=== PATIENT | male | born 1930 | race Hispanic/Latino ===

== ENCOUNTER 2016-08-20 08:56 | Emergency (ER) | payer MEDICARE ==
[2016-08-20 08:56] VITALS: BMI 28.0
[2016-08-20 09:06] VITALS: BP 124/73; PULSE 98; RESP 20; TEMP 98.1; O2SAT 99
--- NOTE | 2016-08-20 09:50 | ED PDOC ---
Arrival/HPI - General Chief Complaint: Lower Extremity Problem/Injury Time Seen by Provider: 08/20/16 09:17 Historian: Patient - History of Present Illness Narrative History of Present Illness (Text): 08/20/16 09:28 Minh Nevarez is an 86 year old male whose past medical history includes Diabetes, Hypertension, and Throat CA, who presents to the Emergency department for bilateral hip & leg pain. Patient has had symptoms chronically. Symptoms are accompanied with mild back pain. No saddle anesthesia. No incontince. No trauma. Patient otherwise denies any fever, chills, chest pain, shortness of breath, nausea, vomiting, diarrhea, urinary symptoms, neck pain, numbness, headache, dizziness, or any other complaints. PMD: None Time/Duration: > month Symptom Onset: Gradual Symptom Course: Unchanged Activities at Onset: Light Context: Home Past Medical History - Provider Review Nursing Documentation Reviewed: Yes - Infectious Disease Hx of Infectious Diseases: None - Cardiac Other/Comment: THROAT AND BLADDER CA - Pulmonary Other/Comment: Trach - Hematological/Oncological Hx Cancer: (Throat CA) - Psychiatric Hx Substance Use: No - Surgical History Other/Comment: tracheostomy - Anesthesia Hx Anesthesia: Yes Hx Anesthesia Reactions: No Hx Malignant Hyperthermia: No - Suicidal Assessment Feels Threatened In Home Enviroment: No Family/Social History - Physician Review Nursing Documentation Reviewed: Yes Family/Social History: No Known Family HX Smoking Status: Former Smoker Hx Alcohol Use: No Hx Substance Use: No Hx Substance Use Treatment: No Allergies/Home Meds Allergies/Adverse Reactions: Allergies No Known Allergies Allergy (Verified 08/20/16 09:06) Home Medications: Home Meds Medication Instructions Recorded Confirmed Aspirin [Aspirin Chewable] 81 mg PO DAILY 08/20/16 08/20/16 Carvedilol [Coreg] 6.25 mg PO BID 08/20/16 08/20/16 Furosemide [Lasix] 20 mg PO MWF 08/20/16 08/20/16 GlipiZIDE [Glucotrol] 5 mg PO BID 08/20/16 08/20/16 Indomethacin [Indocin] 50 mg PO PRN PRN 08/20/16 08/20/16 Levothyroxine [Synthroid] 0.088 mg PO DAILY 08/20/16 08/20/16 Losartan [Cozaar] 25 mg PO DAILY 08/20/16 08/20/16 Simvastatin 80 mg PO DAILY 08/20/16 08/20/16 Spironolactone [Aldactone] 25 mg PO DAILY 08/20/16 08/20/16 Tamsulosin [Flomax] 1 tab PO HS 08/20/16 08/20/16 Review of Systems - Physician Review All systems were reviewed & negative as marked: Yes - Review of Systems Constitutional: Normal. absent: Fevers Eyes: Normal ENT: Normal Respiratory: Normal. absent: SOB, Cough Cardiovascular: Normal. absent: Chest Pain Gastrointestinal: Normal. absent: Abdominal Pain, Diarrhea, Nausea, Vomiting Genitourinary Male: Normal. absent: Dysuria, Frequency, Hematuria, Urinary Output Changes Musculoskeletal: Back Pain, Other (Bilateral Hip and Leg Pain). absent: Neck Pain Skin: Normal Neurological: Normal. absent: Headache, Dizziness, Focal Weakness, Gait Changes Endocrine: Normal Hemo/Lymphatic: Normal Psychiatric: Normal Physical Exam Vital Signs Reviewed: Yes Vital Signs Temp Pulse Resp BP Pulse Ox 08/20/16 09:06 98 H 20 124/73 99 08/20/16 08:59 98.1 F 98 H 20 124/73 99 Temperature: Afebrile Blood Pressure: Normal Pulse: Tachycardic Respiratory Rate: Normal Appearance: Positive for: Well-Appearing, Non-Toxic, Comfortable Pain Distress: None Mental Status: Positive for: Alert and Oriented X 3 - Systems Exam Head: Present: Atraumatic, Normocephalic Pupils: Present: PERRL Extroacular Muscles: Present: EOMI Conjunctiva: Present: Normal Mouth: Present: Moist Mucous Membranes Neck: Present: Normal Range of Motion Respiratory/Chest: Present: Clear to Auscultation, Good Air Exchange. No: Respiratory Distress, Accessory Muscle Use Cardiovascular: Present: Regular Rate and Rhythm, Normal S1, S2. No: Murmurs Abdomen: Present: Normal Bowel Sounds. No: Tenderness, Distention, Peritoneal Signs Back: Present: Paraspinal Tenderness (Lower Lumbar Paraspinal Tenderness). No: Pain with Leg Raise Lower Extremity: Present: Normal ROM, Neurovascularly Intact Neurological: Present: GCS=15, CN II-XII Intact, Speech Normal Skin: Present: Warm, Dry, Normal Color. No: Rashes Psychiatric: Present: Alert, Oriented x 3, Normal Insight, Normal Concentration Medical Decision Making ED Course and Treatment: 08/20/16 09:28 Impression: 86 year old male complaining of bilateral hip and leg pain and mild lower back pain. Differential Diagnosis include but are not limited to: Sciatica vs. Back Sprain vs. Neuropathy Plan: -- LS Spine X-Ray -- Pelvis X-Ray -- Gabapentin -- Toradol -- Reassess and disposition Prior Visits: Notes and results from previous visits were reviewed. Patient was last seen in the Emergency department on 03/23/15 for abdominal pain. Progress Notes: 08/20/16 10:24 Patient feels better. His pain is improved. He does not feel dizzy or lightheaded from the medication. He has friends with him that he and they say will take him home and make sure he gets his medication. I advised him to not drive while on these medications and to follow up with his primary care doctor at the [facility] this week. Advised to return to the ED if he develops numbness, weakness, inability to walk or any other concern. - RAD Interpretation Radiology Orders: 08/20/16 09:33 LS SPINE WITH OBL > 18 YRS OLD [RAD] Stat PELVIS ONE VIEW [RAD] Stat XRays negative for fracture or mass Contract Associate: ED Physician - Medication Orders Current Medication Orders: Gabapentin (Neurontin) 300 mg PO STAT RAMIRO PRN Reason: Protocol Last Admin: 08/20/16 10:02 Dose: 300 MG Discontinued Medications Ketorolac Tromethamine (Toradol) 30 mg IM STAT STA Stop: 08/20/16 09:35 Last Admin: 08/20/16 10:02 Dose: 30 MG IM Administration Charges Document 08/20/16 10:02 HI (Rec: 08/20/16 10:02 CA [id number]) Injection Site MAR Injection Site Right Gluteus Ankur Charges for Administration # of IM Administrations 1 - Scribe Statement The provider has reviewed the documentation as recorded by the Richard Parker Provider Attestation: All medical record entries made by the Richard were at my direction and personally dictated by me. I have reviewed the chart and agree that the record accurately reflects my personal performance of the history, physical exam, medical decision making, and the department course for this patient. I have also personally directed, reviewed, and agree with the discharge instructions and disposition. Disposition/Present on Arrival - Present on Arrival Any Indicators Present on Arrival: No History of DVT/PE: No History of Uncontrolled Diabetes: No Urinary Catheter: No History of Decub. Ulcer: No History Surgical Site Infection Following: None - Disposition Have Diagnosis and Disposition been Completed?: Yes Diagnosis: Sciatica Disposition: HOME/ ROUTINE Disposition Time: 10:14 Patient Plan: Discharge Patient Problems: Current Active Problems Problem Status Diagnosed Sciatica Acute Condition: IMPROVED Discharge Instructions (ExitCare): Sciatica (ED), Lumbar Radiculopathy (ED) Additional Instructions: Mr Nevarez, thank you for letting us take care of you today. Your provider was Dr. Seay. You were treated for Sciatica. The emergency medical care you received today was directed at your acute symptoms. If you were prescribed any medication, please fill it and take as directed. It may take several days for your symptoms to resolve. Return to the Emergency Department if your symptoms worsen, do not improve, or if you have any other problems. Please contact your doctor or call one of the physicians/clinics you have been referred to that are listed on the Patient Visit Information form that is included in your discharge packet. Bring any paperwork you were given at discharge with you along with any medications you are taking to your follow up visit. Our treatment cannot replace ongoing medical care by a primary care provider (PCP) outside of the emergency department. Thank you for allowing the [facility] [employer] team to be part of your care today. If you had an X-Ray or CT scan: A Radiologist will review the ED reading if any change in treatment is needed we will contact you. If you had a blood, urine, or wound culture: It will take several days for the results, if any change in treatment is needed we will contact you. If you had an STI test: It will take 48 hours for the results. Please call after 1 week if you have not heard back. Prescriptions: Gabapentin 300 mg PO TID PRN #10 capsule PRN Reason: Pain, Moderate (4-7) [facility] - Follow up with primary
--- NOTE | 2016-08-20 13:21 | RAD ---
PROCEDURE: Radiographs of the pelvis. HISTORY: hip pain COMPARISON: None. FINDINGS: BONES: Pelvic Bones: No acute fracture. Widely disseminated sclerotic metastatic disease. This affects visualize lower lumbar vertebral bodies, pelvis and proximal femurs. Hips: Moderate -severe in symmetrical degenerative changes. JOINTS: Sacroiliac Joints: Unremarkable. Pubic Symphysis: Unremarkable. OTHER FINDINGS: None. IMPRESSION: Widely disseminated sclerotic metastatic disease. No evidence fracture.
--- NOTE | 2016-08-20 13:23 | RAD ---
PROCEDURE: Radiographs of the Lumbar Spine. HISTORY: back and hip pain COMPARISON: No prior. FINDINGS: BONES: Sclerotic metastatic disease primarily affecting visualized pelvic osseous structures. To a lesser extent lumbar vertebral body is displaced sclerotic disease. DISC SPACES: Multilevel degenerative changes. OTHER FINDINGS: None. IMPRESSION: No acute findings related to/accounting for the clinical presentation. Degenerative changes mid lower lumbar spine. Sclerotic osseous metastatic disease.
== END 2016-08-20 10:26 | disposition home or self-care (01) ==
LOC: ED 08:56
DX: M54.30 Sciatica, unspecified side (principal)
CPT/HCPCS: 72110; 72170; 96372; 99284; J1885

== ENCOUNTER 2016-09-21 17:32 | Inpatient (IN) | payer MEDICARE ==
[2016-09-21 17:36] VITALS: BMI 27.4
--- NOTE | 2016-09-21 18:06 | ED PDOC ---
Arrival/HPI - General Chief Complaint: Lower Extremity Problem/Injury Time Seen by Provider: 09/21/16 17:42 Historian: Patient - History of Present Illness Narrative History of Present Illness (Text): 09/21/16 18:04 Patient is an 86 year old male whose past medical history includes diabetes, hypertension, stent, and throat cancer, presents to the emergency department with bilateral leg swelling for the past week. Patient also reports decreased urinary output for the past month. Denies chest pain, shortness of breath, or other symptoms. Time/Duration: < week Symptom Onset: Gradual Symptom Course: Unchanged Modifying Factors (Text): None Associated Symptoms (Text): None Past Medical History - Provider Review Nursing Documentation Reviewed: Yes - Infectious Disease Hx of Infectious Diseases: None - Cardiac Hx Cardiac Disorders: Yes Hx Hypertension: Yes Other/Comment: THROAT AND BLADDER CA - Pulmonary Hx Respiratory Disorders: Yes Other/Comment: Trach - Neurological Hx Neurological Disorder: No - HEENT Hx HEENT Disorder: No - Renal Hx Renal Disorder: No - Endocrine/Metabolic Hx Endocrine Disorders: Yes Hx Diabetes Mellitus Type 2: Yes - Hematological/Oncological Hx Blood Disorders: Yes Hx Cancer: Yes (Throat CA) - Integumentary Hx Dermatological Disorder: No - Musculoskeletal/Rheumatological Hx Musculoskeletal Disorders: No - Gastrointestinal Hx Gastrointestinal Disorders: No - Genitourinary/Gynecological Hx Genitourinary Disorders: No - Psychiatric Hx Psychophysiologic Disorder: No Hx Substance Use: No - Surgical History Hx Cardiac Catheterization: Yes Hx Coronary Stent: Yes Other/Comment: tracheostomy - Anesthesia Hx Anesthesia: Yes Hx Anesthesia Reactions: No Hx Malignant Hyperthermia: No - Suicidal Assessment Feels Threatened In Home Enviroment: No Family/Social History - Physician Review Nursing Documentation Reviewed: Yes Family/Social History: Unknown Family HX Smoking Status: Former Smoker Hx Alcohol Use: No Hx Substance Use: No Hx Substance Use Treatment: No Allergies/Home Meds Allergies/Adverse Reactions: Allergies No Known Allergies Allergy (Verified 09/25/16 23:50) Home Medications: Home Meds Medication Instructions Recorded Confirmed Aspirin [Aspirin Chewable] 81 mg PO DAILY 08/20/16 09/25/16 Carvedilol [Coreg] 6.25 mg PO BID 08/20/16 09/25/16 Furosemide [Lasix] 20 mg PO MWF 08/20/16 09/25/16 GlipiZIDE [Glucotrol] 5 mg PO BID 08/20/16 09/25/16 Indomethacin [Indocin] 50 mg PO PRN PRN 08/20/16 09/25/16 Levothyroxine [Synthroid] 0.088 mg PO DAILY 08/20/16 09/25/16 Simvastatin 80 mg PO DAILY 08/20/16 09/25/16 Tamsulosin [Flomax] 1 tab PO HS 08/20/16 09/25/16 Cholecalciferol [Vitamin D 1000 IU] 2,000 units PO DAILY 09/21/16 09/25/16 Ipratropium [place] 2 spr IN DAILY 09/21/16 09/25/16 Review of Systems - Review of Systems Eyes: absent: Vision Changes ENT: absent: Hearing Changes Respiratory: absent: SOB Cardiovascular: Edema. absent: Chest Pain Gastrointestinal: absent: Abdominal Pain, Nausea, Vomiting Genitourinary Male: Urinary Output Changes (decreased x 1 month). absent: Dysuria, Hematuria Musculoskeletal: absent: Back Pain Skin: absent: Rash Neurological: absent: Headache Endocrine: absent: Diaphoresis Psychiatric: absent: Depression Physical Exam - Physical Exam Narrative Physical Exam (Text): Head: Atraumatic. Normocephalic. Eyes: PERRL. EOMI. Conjunctivae are not pale. ENT: Mucous membranes are moist and intact. Oropharynx is clear and symmetric. Neck: Supple. Full ROM. No JVD. No lymphadenopathy. Cardiovascular: Regular rate. Regular rhythm. Systolic murmur. No rubs, or gallops. Distal pulses are 2+ and symmetric. Pulmonary/Chest: No evidence of respiratory distress. Diminished breath sounds left lung, no accessory muscle usage. Abdominal: Soft and non-distended. There is no tenderness. No rebound, guarding, or rigidity. No organomegaly. Good bowel sounds. Back: No CVA tenderness. Genitoruinary: no penile discharge, no testicular edema Extremities: Bilateral lower extremity pitting edema. No cyanosis. No clubbing. Full range of motion in all extremities. No calf tenderness. Skin: Skin is warm and dry. No petechiae. No purpura. Neurological: Alert, awake, and oriented to person, place, time, and situation. Normal speech. Psychiatric: Good eye contact. Normal interaction, affect, and behavior. Vital Signs Reviewed: Yes Vital Signs Temp Pulse Resp BP Pulse Ox 09/21/16 20:54 116/69 05/17/17 20:52 68 16 129/65 93 L 09/21/16 19:37 129/76 09/21/16 19:00 59 L 17 106/61 97 09/21/16 17:36 99 F 70 16 110/67 94 L Temperature: Afebrile Blood Pressure: Normal Pulse: Regular Respiratory Rate: Normal Appearance: Positive for: Well-Appearing, Non-Toxic, Comfortable Pain Distress: None Mental Status: Positive for: Alert and Oriented X 3 Medical Decision Making ED Course and Treatment: Differential Diagnosis included but are not limited to: Renal disease vs CHF vs medication noncompliance Plan: Will obtain chest x-ray, BNP, labs, and cardiac workup. Prior Visits: Notes and results from previous visits were reviewed. Patient last seen in the ED on 08/20/16 for bilateral hip/leg pain and discharged home. Progress Notes: Patient with multiple questioning denies any chest pain or shortness of breath. Chest xray reveals large pleural effusion: Chest X-Ray Movable Bulkhead Installer : DR. Becerra, Geovanna Bernstein MD Report Date : 09/21/2016 18:42:01 IMPRESSION: Large left pleural effusion and/or consolidation. Left-sided AICD. With family present, patient again interviewed and later admits that he may have some shortness of breath over past few days with exertion. He also reports sensation in change of urine output, although he is noted to have no signs of retention and no abdominal pain on exam. On oxygen he is comfortable, no acute distress. Case discussed with admitting PMD, dose of Lasix ordered, patient maintained on supplemental oxygen and continues to deny any shortness of breath at rest. Differential diagnosis discussed with patient and family, including but not limited to CHF, pleural effusion, malignancy, cardiac disease, renal disease. 10/10/16 22:05 - Lab Interpretations Lab Results: 09/21/16 18:20 09/21/16 18:20 Lab Results 09/21/16 19:45: pCO2 30 L, pO2 74.0 L, HCO3 16.9 L, ABG pH 7.36, ABG Total CO2 17.8 L, ABG O2 Saturation 97.0, ABG Base Excess -7.3 L, ABG Potassium 4.8, Glucose 142 H, Lactate 0.6 L, FiO2 32.0, Sodium 137.0, Chloride 117.0 H, Arterial Blood Potassium 4.8 09/21/16 18:20: POC Glucose (mg/dL) 133 H 09/21/16 18:20: Sodium 138, Potassium 4.9, Chloride 109 H, Carbon Dioxide 21, Anion Gap 13, BUN 32 H, Creatinine 1.6 H, Est GFR ( Amer) 50, Est GFR ( Non-Af Amer) 41, Random Glucose 113 H, Calcium 8.6, Total Bilirubin 1.0, AST 59 , ALT 30, Alkaline Phosphatase 1300 H, Lactate Dehydrogenase 3142 H, Total Creatine Kinase 172, Troponin I 0.01, NT-Pro-B Natriuret Pep 9060 H, Total Protein 6.6, Albumin 3.6, Globulin 3.0, Albumin/Globulin Ratio 1.2, Triglycerides 102, Cholesterol 88 L, LDL Cholesterol Direct 42, HDL Cholesterol 33 09/21/16 18:20: PT 12.2 H, INR 1.13 H, APTT 29.5 09/21/16 18:20: WBC 4.9, RBC 3.73, Hgb 10.6 L, Hct 31.5 L, MCV 84.5, MCH 28.4, MCHC 33.7, RDW 16.9 H, Plt Count 147, MPV 9.8, Gran % 76.9 H, Lymph % (Auto) 13.0 L, [place] % (Auto) 7.4 H, Eos % (Auto) 2.3, Baso % (Auto) 0.4, Gran # 3.73, Lymph # 0.6 L, [place] # 0.4, Eos # 0.1, Baso # 0.02 - RAD Interpretation Radiology Orders: 09/21/16 18:05 CHEST PORTABLE [RAD] Stat 09/21/16 19:17 CHEST W/O CONTRAST [CT] Stat Contractor General Building: Radiologist - Medication Orders Current Medication Orders: Discontinued Medications Acetaminophen (Tylenol 325mg Tab) 650 mg PO Q6H PRN PRN Reason: Fever >100.4 F Albuterol/Ipratropium (Duoneb 3 Mg/0.5 Mg (3 Ml) Ud) 3 ml IH Q2H PRN PRN Reason: Shortness of Breath Last Admin: 09/21/16 23:38 Dose: 3 ml Albuterol/Ipratropium (Duoneb 3 Mg/0.5 Mg (3 Ml) Ud) 3 ml IH [id number] [facility] Last Admin: 09/25/16 13:44 Dose: 3 ml Apixaban (Eliquis) 2.5 mg PO BID [facility] PRN Reason: Protocol Last Admin: 09/25/16 09:49 Dose: 2.5 mg Aspirin (Aspirin Chewable) 81 mg PO DAILY [facility] Last Admin: 09/25/16 09:49 Dose: 81 mg Atorvastatin Calcium (Lipitor) 40 mg PO DAILY [facility] Last Admin: 09/25/16 09:49 Dose: 40 mg Carvedilol (Coreg) 6.25 mg PO BID [facility] Last Admin: 09/24/16 11:14 Dose: Not Given Non-Admin Reason: BP Parameters Not Met Carvedilol (Coreg) 6.25 mg PO DAILY [facility] Last Admin: 09/25/16 09:50 Dose: Not Given Non-Admin Reason: BP Parameters Not Met Enoxaparin Sodium (Lovenox) 40 mg SC DAILY [facility] PRN Reason: Protocol Last Admin: 09/24/16 11:22 Dose: 40 mg Furosemide (Lasix) 20 mg IVP STAT STA Stop: 09/21/16 19:32 Last Admin: 09/21/16 19:37 Dose: 20 mg Furosemide (Lasix) 20 mg IVP STAT STA Stop: 09/21/16 20:39 Last Admin: 09/21/16 20:54 Dose: 20 mg Furosemide (Lasix) 40 mg IVP DAILY [facility] Last Admin: 09/25/16 09:51 Dose: Not Given Non-Admin Reason: BP Parameters Not Met Gabapentin (Neurontin) 300 mg PO TID [facility] Last Admin: 09/25/16 13:25 Dose: 300 mg Glipizide (Glucotrol) 5 mg PO BID [facility] Last Admin: 09/25/16 09:50 Dose: 5 mg Ceftriaxone Sodium (Rocephin 1 Gram Ivpb) 1 gm in 100 mls @ 100 mls/hr IVPB DAILY [facility] PRN Reason: Protocol Last Admin: 09/25/16 09:51 Dose: 100 mls/hr Indomethacin (Indocin) 50 mg PO DAILY PRN PRN Reason: Pain, moderate (4-7) Last Admin: 09/24/16 15:33 Dose: 50 mg Re-Assess: ASHLEY Pain Assessment Document 09/24/16 16:33 MIKE (Rec: 09/24/16 17:43 MIKE [id number]) Pain Reassessment Is this a pain reassessment? Yes Sleep Is patient sleeping during reassessment? No Presence of Pain Presence of Pain No Insulin Human Regular (Humulin R Med) 0 units SC ACHS [facility] PRN Reason: Protocol Last Admin: 09/25/16 12:09 Dose: Not Given Non-Admin Reason: Blood Sugar Parameter Levothyroxine Sodium (Synthroid) 88 mcg PO DAILY [facility] Last Admin: 09/25/16 09:49 Dose: 88 mcg Losartan Potassium (Cozaar) 25 mg PO DAILY [facility] Last Admin: 09/24/16 11:15 Dose: Not Given Non-Admin Reason: BP Parameters Not Met Magnesium Oxide (Mag-Ox) 400 mg PO BID [facility] Last Admin: 09/25/16 09:49 Dose: 400 mg Ondansetron HCl (Zofran Inj) 4 mg IVP Q6H PRN PRN Reason: Nausea/Vomiting Pantoprazole Sodium (Protonix Ec Tab) 40 mg PO 0630 [facility] Last Admin: 09/25/16 06:19 Dose: 40 mg Spironolactone (Aldactone) 25 mg PO DAILY [facility] Last Admin: 09/25/16 09:49 Dose: 25 mg Tamsulosin HCl (Flomax) 0.4 mg PO HS [facility] Last Admin: 09/24/16 21:13 Dose: 0.4 mg - Niraliibheladio Statement The provider has reviewed the documentation as recorded by the Richard Gilbert Provider Scribe Attestation: All medical record entries made by the Richard were at my direction and personally dictated by me. I have reviewed the chart and agree that the record accurately reflects my personal performance of the history, physical exam, medical decision making, and the department course for this patient. I have also personally directed, reviewed, and agree with the discharge instructions and disposition. Disposition/Present on Arrival - Present on Arrival Any Indicators Present on Arrival: No History of DVT/PE: No History of Uncontrolled Diabetes: No Urinary Catheter: No History of Decub. Ulcer: No History Surgical Site Infection Following: None - Disposition Have Diagnosis and Disposition been Completed?: Yes Diagnosis: CHF (congestive heart failure), Pleural effusion, Leg edema Disposition: HOSPITALIZED Disposition Time: 19:35 Patient Plan: Admission Condition: SERIOUS
[2016-09-21 18:25] LABS: ADD MANUAL DIFF? NO
[2016-09-21 18:32] LABS: BASO # 0.02 K/mm3 (0.0-2.0); BASO % 0.4 % (0.0-3.0); EOS # 0.1 (0.0-0.7); EOS % 2.3 % (1.5-5.0); GRAN # 3.73 (1.4-6.5); GRAN % 76.9 % (50.0-68.0); HEMATOCRIT 31.5 % (42.0-52.0); LYMPH # 0.6 (1.2-3.4); MEAN CELL VOLUME 84.5 fL (80.0-105.0); MEAN CORPUSCULAR HEMOGLOBIN 28.4 pg (25.0-35.0); MEAN CORPUSCULAR HGB CONC 33.7 g/dl (31.0-37.0); MEAN PLATELET VOLUME 9.8 fl (7.0-11.0); MONO # 0.4 (0.1-0.6); MONO % 7.4 % (1.0-6.0); PLATELET COUNT 147 10^3/uL (120.0-450.0); RED CELL DISTRIBUTION WIDTH 16.9 % (11.5-14.5); WHITE BLOOD COUNT 4.9 10^3/ul (4.5-11.0)
[2016-09-21 18:36] LABS: ALB/GLOB RATIO 1.2 (1.1-1.8); CALCIUM 8.6 mg/dL (8.4-10.5); POTASSIUM 4.9 mmol/L (3.6-5.0); TOTAL PROTEIN 6.6 g/dL (5.8-8.3)
[2016-09-21 18:40] LABS: INR 1.13 (0.93-1.08); PARTIAL THROMBOPLASTIN TIME 29.5 Seconds (23.7-30.8)
--- NOTE | 2016-09-21 18:44 | RAD ---
HISTORY: leg edema COMPARISON: CT of the chest performed 03/23/15 TECHNIQUE: Chest, one view. FINDINGS: LUNGS: Large left pleural effusion and/or consolidation. No definite pneumothorax. Please note that chest x-ray has limited sensitivity for the detection of pulmonary masses. CARDIOVASCULAR: Median sternotomy wires. Partially obscured borderline cardiomegaly. Atherosclerotic calcifications of the aorta. Single lead left-sided AICD. OSSEOUS STRUCTURES: Osseous demineralization. Degenerative changes. VISUALIZED UPPER ABDOMEN: Unremarkable. OTHER FINDINGS: None. IMPRESSION: Large left pleural effusion and/or consolidation. Left-sided AICD.
[2016-09-21 18:48] LABS: TROPONIN I 0.01 ng/mL
[2016-09-21 19:55] LABS: ARTERIAL BLOOD GAS HCO3 16.9 mmol/L (21-28); ARTERIAL BLOOD GAS PH 7.36 (7.35-7.45)
[2016-09-21 21:53] LABS: URINE BILIRUBIN NEGATIVE (NEGATIVE); URINE BLOOD SMALL (NEGATIVE); URINE GLUCOSE (UA) NEGATIVE (NEGATIVE); URINE KETONE NEGATIVE (NEGATIVE); URINE LEUKOCYTE ESTERASE NEGATIVE Leu/uL (NEGATIVE); URINE PROTEIN NEGATIVE mg/dL (<30 mg/dL); URINE UROBILINOGEN 0.2 E.U./dL (<1 E.U./dL)
[2016-09-21] MEDS ORDERED: Albuterol-Ipratrop 3 mg / 0.5 (3 ml) UD IH PRN (21:54)
[2016-09-21 22:00] LABS: URINE APPEARANCE CLEAR (CLEAR); URINE COLOR YELLOW (YELLOW)
--- NOTE | 2016-09-21 22:16 | CARD ---
APPROVED REPORT EKG Measurement Heart [id number] <Conclusion> Wide QRS rhythm Left axis deviation Left bundle branch block Abnormal ECG
[2016-09-21 22:31] LABS: URINE BACTERIA MANY (NEG); URINE WBC 0 - 2 /hpf (0-6)
--- NOTE | 2016-09-21 23:26 | HP ---
HISTORY OF PRESENT ILLNESS: The patient is an 86-year-old who was brought in because of increasing b ilateral leg swelling and has been going on for the last 2 weeks. He was given extra Lasix by the ad vice of his PMD, but did not make any difference. Denies any chest pain, no shortness of breath. No history of fever, no chills, no history of hemoptysis, no hematemesis, no dizziness. PAST MEDICAL HISTORY: 1. Non-insulin dependent diabetes. 2. Hypertension. 3. History of angioplasty. 4. 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 5. History of generalized osteoarthritis. 6. The patient also mentions that recently his urine output has been decreased. ALLERGIES: He is not allergic to any medications. MEDICATIONS AT HOME: He is on Coumadin 6.25 twice a day, indomethacin 50 mg t.i.d. p.r.n. He is on ipratropium, vitamin D, Lasix 20 mg Monday, Monday and Monday; glipizide 5 mg twice a day, levothy roxine 0.88 daily, losartan 25 daily, simvastatin 80 mg daily, aspirin 81 daily, Aldactone 25 daily, Flomax 0.4 mg daily. SOCIAL HISTORY: He used to be a heavy smoker in the past, but quit many years ago. No history of dr ug or alcohol use. PHYSICAL EXAMINATION: GENERAL: He is awake and alert, able to communicate. VITAL SIGNS: He is afebrile, pulse 68, respirations 16, blood pressure 129/65. LUNGS: Bilateral fair airflow, no rhonchi or crackle. He has bilateral increased breath sounds, mor e so on the bases. HEART: S1, S2 audible. ABDOMEN: Soft, nontender, no rebound, no guarding. NEUROLOGIC: He is awake and alert, communicative. EXTREMITIES: Bilateral leg +2 edema. LABORATORY DATA: WBC is 4.9, hemoglobin 10.6, hematocrit 31.5, platelets 147. PT 12.2, INR 1.13, PT T 29.5. ABG: pH is 7.36, bicarb 16.9, pO2 74, pCO2 30. Chemistry: Sodium 138, potassium 4.0, chlo ride 109, CO2 21, BUN 32, creatinine 1.6, blood sugar 130. LFTs are within normal limits. Alkaline phosphatase is 1383, 1142. BNP is 9060. CPK 172. X-ray chest shows large left pleural effusion and consolidation and status post defibrillator placement. ASSESSMENT: 1. Bilateral leg swelling. 2. Left pleural effusion. 3. Status post defibrillator placement. 4. Noninsulin dependent diabetes. 5. Hypertension. 6. Coronary artery disease. 7. History of chronic obstructive pulmonary disease. 8. History of cancer of throat. 9. Hypothyroidism. PLAN: The patient will be admitted on telemetry. We will start him on IV diuretics, will empiricall y cover him with IV antibiotic. Will order for bilateral leg Doppler, will order for an echocardiogr amDr. Lemus for consult. We will follow up electrolytes in a.m. Dr. Navjot Phan for possible thora centesis, both therapeutic and diagnostic. Resume the patient's usual medication and reevaluate in a .m. Araceli Ghotra MD cc: [phone] TT: 09/21/2016 23:26:01 va
[2016-09-21] MEDS: Insulin Reg-MEDIUM-Coverage SC SCH (23:34)
--- NOTE | 2016-09-21 23:43 | CP.PCM.CON ---
History of Present Illness - History of Present Illness History of Present Illness: Reason for ICU Consult: Left sided pleural effusion HPI: 86 y/o male with a PMHx Vocal cord lesion s/p trach, CABG, BPH, Hypothyroid , DM, Gout and ?CHf presented to the ED with the complaint of worsening shortness of breath. Patient reported his shortness of breath would get worse when exerting himself and caused him to pause and catch his breath more often than usual. Also over the past 1 week he has been complaining of lower extremity swelling which has been worsening. He denies any complaints of chest pain, palpitations, abdominal pain, nausea, vomiting, fever, chills, diarrhea or headaches. He denies any recent travel or any sick contacts. Patient reports feeling better with less shortness of breath at rest after coming to the ED and receiving Oxygen via nasal cannula. PMHx: As above Allergies: NKDA Fam Hx: reviewed and noncontributory Soc Hx: prior smoker, states he has not smoked in over 20yrs; denies etoh; denies illicit drug use Home meds: See Med Rec Review of Systems - Review of Systems Review of Systems: As per HPI otherwise negative for a 12 point ROS Past Patient History - Infectious Disease Hx of Infectious Diseases: None - Past Social History Smoking Status: Former Smoker Alcohol: None Drugs: Denies Home Situation {Lives}: With Family - CARDIAC Hx Cardiac Disorders: Yes Hx Hypertension: Yes Other/Comment: THROAT AND BLADDER CA - PULMONARY Hx Respiratory Disorders: Yes Other/Comment: Trach - NEUROLOGICAL Hx Neurological Disorder: No - HEENT Hx HEENT Problems: No - RENAL Hx Chronic Kidney Disease: No - ENDOCRINE/METABOLIC Hx Endocrine Disorders: Yes Hx Diabetes Mellitus Type 2: Yes - HEMATOLOGICAL/ONCOLOGICAL Hx Blood Disorders: Yes Hx Cancer: Yes (Throat CA) - INTEGUMENTARY Hx Dermatological Problems: No - MUSCULOSKELETAL/RHEUMATOLOGICAL Hx Musculoskeletal Disorders: No - GASTROINTESTINAL Hx Gastrointestinal Disorders: No - GENITOURINARY/GYNECOLOGICAL Hx Genitourinary Disorders: No - PSYCHIATRIC Hx Psychophysiologic Disorder: No Hx Substance Use: No - SURGICAL HISTORY Hx Cardiac Catheterization: Yes Hx Coronary Stent: Yes Other/Comment: tracheostomy - ANESTHESIA Hx Anesthesia: Yes Hx Anesthesia Reactions: No Hx Malignant Hyperthermia: No Meds Allergies/Adverse Reactions: Allergies Allergy/AdvReac Type Severity Reaction Status Date / Time No Known Allergies Allergy Verified 09/21/16 17:35 Physical Exam - Constitutional Appears: Well, No Acute Distress - Head Exam Head Exam: ATRAUMATIC, NORMOCEPHALIC - Eye Exam Eye Exam: EOMI - ENT Exam ENT Exam: Mucous Membranes Moist Additional comments: Trach site with cover - Neck Exam Neck exam: Positive for: Full Rom. Negative for: Tenderness - Respiratory Exam Respiratory Exam: NORMAL BREATHING PATTERN Additional comments: decreased breath sounds over the left lung; clear to auscultation otherwise - Cardiovascular Exam Cardiovascular Exam: REGULAR RHYTHM, +S1, +S2 - GI/Abdominal Exam GI & Abdominal Exam: Soft. absent: Guarding, Rebound, Tenderness - Rectal Exam Rectal Exam: Deferred - Extremities Exam Additional comments: 3+ lower extremity edema to the level of the knees - Neurological Exam Neurological exam: Alert, Oriented x3 - Psychiatric Exam Psychiatric exam: Normal Affect, Normal Mood - Skin Skin Exam: Dry, Intact, Normal Color, Warm Results - Vital Signs Recent Vital Signs: Last Vital Signs Temp 99 F 09/21/16 17:36 Pulse 68 09/21/16 20:52 Resp 16 09/21/16 20:52 BP 116/69 09/21/16 20:54 Pulse Ox 93 L 09/21/16 20:52 - Labs Result Diagrams: 09/21/16 18:20 09/21/16 18:20 - Imaging and Cardiology CT scan - chest Status: Image reviewed by me, Report reviewed by me (85% left lung pleural effusion with collapse of the lingula; mild right sided effusion) Assessment & Plan - Assessment and Plan (Free Text) Assessment: 86 y/o male with an extensive PMHx presents to the ED with shortness of breath which has progressing as compared to his baseline and is found to have a large left sided pleural effusion. It is unclear whether the patient has been formally diagnosed with congestive heart failure, however his lower extremity swelling and pleural effusion are most likely the result of such. He has improved significantly with nasal cannula alone in the ED and therefore does not warrant aggressive ICU level care at this time. He may be admitted to a monitored bed and treated with IV diuretics and have a crocker placed given his history of BPH. He should also ideally be scheduled for a thoracentesis for therapeutic and diagnostic purposes. In the event that his condition changes or worsens I will be available for re-evaluation overnight. all labs and images available thus far have been reviewed personally Case discussed at length with Dr. Ang in the ER
--- NOTE | 2016-09-22 09:47 | CT ---
PROCEDURE: CT Chest without contrast HISTORY: LEFT PLEURAL EFFUSION COMPARISON: 03/23/2015 TECHNIQUE: Contiguous axial images were obtained through the chest without intravenous contrast enhancement. Sagittal and coronal reconstructions were performed. Radiation dose (DLP): 672 mGy-cm. This CT exam was performed using one or more of the following dose reduction techniques: Automated exposure control, adjustment of the mA and/or kV according to patient size, and/or use of iterative reconstruction technique. FINDINGS: LUNGS: There is consolidation at the left lung base adjacent to the large pleural effusion MEDIASTINUM: Unremarkable thoracic aorta. No aneurysm. Moderate cardiomegaly Main pulmonary artery unremarkable. No vascular congestion. No lymphadenopathy. PLEURA: Large left pleural effusion. Small right effusion BONES: No fracture. No destructive lesion. UPPER ABDOMEN: Grossly unremarkable. OTHER FINDINGS: None. IMPRESSION: Large left pleural effusion and consolidation in the left lower lobe. Minimal aerated lung in the right upper lobe
--- NOTE | 2016-09-22 15:05 | US ---
HISTORY: Leg pain and swelling. Evaluate for DVT PHYSICIAN(S): Navjot Phan MD. TECHNIQUE: Duplex sonography and color-flow Doppler with graded compression were used to evaluate the deep venous systems of both lower extremities. FINDINGS: The visualized deep venous systems of both lower extremities are sonographically normal and compressible. Normal wave forms and augmentation are seen. There is no sonographic evidence for deep venous thrombosis in the visualized segments of both lower extremities. IMPRESSION: No sonographic evidence for deep venous thrombosis in the visualized segments of both lower extremities.
--- NOTE | 2016-09-22 17:24 | CON ---
DATE: 09/22/2016 SERVICE: Cardiology. REASON FOR CONSULTATION: Cardiac evaluation, decompensated congestive heart failure. BRIEF CLINICAL HISTORY: An 86-year-old male with past medical history of coronary artery disease, status post CABG in [place] 20 years ago, history of PTCA 20 years ago, history of defibrillator 17 years ago, history of throat cancer, status post radiation, then later on neck dissection and status post tracheostomy 7 years ago, admitted with complaint of leg swelling, history of BPH, diabetes, hypertension, hyperlipidemia. 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 Denies any chest pain. Complained of mild shortness of breath. SOCIAL HISTORY: Ex-smoker, heavy, before the head and neck cancer was diagnosed. Denies any history of alcohol abuse. CURRENT MEDICATIONS: The patient is taking Flomax 0.4 mg, Coreg 6.25 mg, simvastatin 20 mg daily, Lasix 40, K-Dur 20, Coreg 6.125 mg daily. REVIEW OF SYSTEMS: As per HPI. ALLERGIES: No known drug allergies. PHYSICAL EXAMINATION: VITAL SIGNS: Temperature afebrile, heart rate 80, blood pressure 130/80. HEENT: PERRLA. Extraocular muscles intact. NECK: Supple. No carotid bruits. No thyromegaly. CHEST: Clear to auscultation. HEART: S1, S2 regular. ABDOMEN: Soft. EXTREMITIES: Clubbing and cyanosis negative. Telemetry, AFib at a rate of 60, left ____ bundle branch block. IMPRESSION: Atrial fibrillation, possibly chronic, cardiomyopathy, coronary artery disease, coronary artery bypass graft, status post automatic implantable cardioverter-defibrillator, increased leg swelling, rule out congestive heart failure, hypertension, hyperlipidemia, coronary artery disease, ____ status post percutaneous transluminal coronary angioplasty, head and neck cancer, status post tracheostomy. RECOMMENDATION: We will continue Lasix, continue to supplement potassium. Echo to assess LV function. Rule out lower extremity PE, deep vein thrombosis, going for DVT study. Will get echo. We will get also a TSH, lipid profile. Will also discuss with the patient's family, daughter, The patient was not on anticoagulation. Will follow with you. Thank you, Dr. Ghotra, for providing the opportunity in taking care of the patient. EKG shows AFib, left axis left bundle branch block. Jake Lemus MD cc: [phone] TT: 09/22/2016 17:24:03 Confirmation # [id number] Dictation # [id number] [email or web address] NAGY
[2016-09-22] MEDS: Albuterol-Ipratrop 3 mg / 0.5 (3 ml) UD IH SCH (19:39)
[2016-09-22] MEDS: Insulin Reg-MEDIUM-Coverage SC SCH (22:26)
[2016-09-23] MEDS: Albuterol-Ipratrop 3 mg / 0.5 (3 ml) UD IH SCH ×4 (01:52→19:46)
[2016-09-23] MEDS: Pantoprazole 40 mg EC Tab PO SCH (06:02)
[2016-09-23] MEDS: Insulin Reg-MEDIUM-Coverage SC SCH ×4 (08:24→21:59)
[2016-09-23 08:40] LABS: ADD MANUAL DIFF? NO
[2016-09-23 08:48] LABS: BASO # 0.02 K/mm3 (0.0-2.0); BASO % 0.3 % (0.0-3.0); EOS # 0.1 (0.0-0.7); EOS % 0.8 % (1.5-5.0); GRAN # 5.71 (1.4-6.5); HEMATOCRIT 33.1 % (42.0-52.0); LYMPH # 0.6 (1.2-3.4); LYMPH % 7.8 % (22.0-35.0); MEAN CORPUSCULAR HEMOGLOBIN 27.7 pg (25.0-35.0); MEAN CORPUSCULAR HGB CONC 32.9 g/dl (31.0-37.0); MEAN PLATELET VOLUME 9.9 fl (7.0-11.0); MONO # 0.8 (0.1-0.6); MONO % 11.1 % (1.0-6.0); PLATELET COUNT 142 10^3/uL (120.0-450.0); WHITE BLOOD COUNT 7.1 10^3/ul (4.5-11.0)
[2016-09-23 08:55] LABS: ALB/GLOB RATIO 1.1 (1.1-1.8); BILIRUBIN,TOTAL 1.2 mg/dL (0.2-1.3); CALCIUM 8.1 mg/dL (8.4-10.5); MAGNESIUM 1.5 mg/dL (1.7-2.2); POTASSIUM 4.8 mmol/L (3.6-5.0); TOTAL PROTEIN 6.4 g/dL (5.8-8.3)
[2016-09-23] MEDS: cefTRIAXone 1 gm 1 GM/100 ML BAG IVPB SCH (10:01)
[2016-09-23] MEDS: Levothyroxine 88 MCG TAB PO SCH (10:12)
--- NOTE | 2016-09-23 17:02 | CARD ---
APPROVED REPORT EXAM: Two-dimensional and M-mode echocardiogram with Doppler and color Doppler. 2D DIMENSIONS Left Atrium (2D)5.5 (1.6-4.0cm)IVSd1.1 (0.7-1.1cm) LVDd5.9 (3.9-5.9cm)PWd1.1 (0.7-1.1cm) LVDs4.8 (2.5-4.0cm)FS (%) 18.1 % LVEF (%)36.8 (>50%) M-Mode DIMENSIONS Left Atrium (MM)5.10 (2.5-4.0cm)Aortic Root3.80 (2.2-3.7cm) Aortic Cusp Exc.1.90 (1.5-2.0cm) Aortic Valve AoV Peak Beyfmpmx648.0cm/sAoV VTI20.9cmAO Peak GR.4mmHg LVOT Peak Emhzzaqu39.2cm/sLVOT VTI11.40cmAO Mean GR.2mmHg Mitral Valve MV E Lepqrlnv67.5cm/s TDI Lateral E' Peak V7.25cm/sMedial E' Peak V4.04cm/sE/Lateral E'11.0 E/Medial E'19.7 Tricuspid Valve TR Peak Yqkdvrjn437oo/sRAP [id number] Peak Gr.29mmHg [id number] LEFT VENTRICLE The left ventricle is normal size. There is normal left ventricular wall thickness. The systolic function is moderately to severely impaired. Regional wall motion abnormalities noted. RIGHT VENTRICLE The right ventricle is normal size. There is normal right ventricular wall thickness. The right ventricular systolic function is normal. ATRIA The left atrium is moderately dilated. The right atrium is mildly dilated. AORTIC VALVE The aortic valve is mildly sclerotic. No aortic regurgitation is present. MITRAL VALVE The mitral valve is mildly thickened. Mitral regurgitation is mild to moderate. TRICUSPID VALVE There is mild tricuspid regurgitation. There is mild pulmonary hypertension. GREAT VESSELS The aortic root is normal in size. PERICARDIAL EFFUSION There is no pericardial effusion. <Conclusion> The left ventricle is normal size. There is normal left ventricular wall thickness. The systolic function is moderately to severely impaired. Regional wall motion abnormalities noted. Mitral regurgitation is mild to moderate. There is mild tricuspid regurgitation. There is mild pulmonary hypertension.
[2016-09-23] MEDS: Magnesium Oxide 400 mg Tab UD PO SCH (17:42)
--- NOTE | 2016-09-23 18:42 | PN ---
DATE: 09/23/2016 REASON FOR CONSULTATION AND FOLLOWUP: Cardiac evaluation, decompensated congestive heart failure, la rge pleural effusion status post thoracentesis. BRIEF CLINICAL HISTORY: An 86-year-old male with past medical history significant for coronary arter y disease, chronic atrial fibrillation, not on anticoagulation, coronary artery disease, CABG [address] [facility], possibly history of PTCA 15-20 years ago, history of defibrillat or placed 17 years ago, history of throat cancer, status post radiation at [place] ____, status p ost tracheostomy, radical neck dissection being followed at [facility], came in with complaint of shortness of breath, decompensated heart failure, status post thoracentesis more than 2 liters of fl uid was withdrawn from the left side of the chest, pleural effusion, now feels a lot better. Macy araya is at the bedside, discussed with the daughter risk of the patient. The patient knows that he was in atrial fibrillation, but never been on anticoagulation, ____ other brother, but no other siblings are aware of any anticoagulation. The list provided the medication, but not on anticoagulation. The patient has never been on anticoagulation except baby aspirin. PHYSICAL EXAMINATION: VITAL SIGNS: Temperature afebrile, heart rate 65, blood pressure 90/54. HEENT: PERRLA. Extraocular muscles intact. NECK: Supple. No carotid bruits. No thyromegaly. CHEST: Clear to auscultation. HEART: S1, S2 regular. ABDOMEN: Soft. EXTREMITIES: Clubbing and cyanosis negative. LABORATORY DATA: Blood workup: WBC ____, hemoglobin 9.7, 10.9, hematocrit 33.1, platelet count 142. Chemistry shows sodium 130, potassium 4.0, chloride 106, carbon dioxide 24, anion gap of 14, BUN 30 , creatinine 1.4. IMPRESSION: Decompensated congestive heart failure. Admitting BNP was 9060. Chest x-ray consistent with congestive heart failure, large left pleural effusion status post thoracentesis and a large patti unt of pleural fluid was drained, coronary artery disease, coronary artery bypass graft 20 years ago, status post percutaneous transluminal coronary angioplasty, status post defibrillator placed 17 year s ago, being followed at [facility], history of chronic atrial fibrillation, not on anticoagulati on, cardiomyopathy, throat cancer, status post tracheostomy, ex-smoker. RECOMMENDATION: Continue aspirin. Continue Coreg, continue losartan, continue Lasix, atorvastatin. We will start DVT prophylaxis now. Upon discharge, consider anticoagulation, will discuss with Dr. Ghotra. Otherwise, the patient is not on anticoagulation. We discussed the PMD. For now, I discus sed with the family, NSAID before the patient goes home, needs long-term anticoagulation. The patien t being followed at [facility]. Will start Lovenox subq 40 from tomorrow. Jake Lemus MD cc: [id number] TT: 09/23/2016 18:42:15 Confirmation # [id number] Dictation # [id number] jn
--- NOTE | 2016-09-23 20:51 | PN ---
DATE: 09/23/2016 SUBJECTIVE: The patient has no complaints of any chest pain, no shortness of breath, no headaches. He is able to eat comfortably. PHYSICAL EXAMINATION: VITAL SIGNS: Temperature is 97.8, pulse of 63, blood pressure is 82/48, respirations 18. GENERAL: The patient comfortable, in no acute distress. HEENT: Anicteric sclerae. Moist mucosa. NECK: No JVD or adenopathy. Positive for tracheostomy. CARDIAC: S1/S2. No murmurs. No rubs. Regular. RESPIRATORY: Clear to auscultation bilaterally. No wheezes, rales, or rhonchi. Good air entry. ABDOMEN: Bowel sounds are positive, soft, nontender, and nondistended. EXTREMITIES: No edema. Has 1+ pulses. LABS: White count of 7.1, hemoglobin 10.9, creatinine is 1.4. Lower extremity ultrasound shows no evidence of DVT. CT of the chest shows a large left pleural effusion, consolidation, of the left lower lobe. ASSESSMENT: 1. Left pleural effusion with consolidation. 2. Coronary artery disease. 3. Dyslipidemia. 4. Hypertension. 5. Head and neck cancer with tracheostomy. 6. Atrial fibrillation. 7. Coronary artery disease. 8. Automatic implantable cardioverter-defibrillator. 9. 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 10. Diabetes, type 2. PLAN: The patient is currently comfortable. He has a large pleural effusion. He is being followed by Dr. Lemus. He was seen by Dr. Navjot Phan. The patient had an echo done that showed LV is normal in size. There is systolic dysfunction that is moderately to severely impaired. The patient is on A ldactone. He is going to continue on aspirin. He is going to continue with Flomax for BPH. He is o n glipizide for his diabetes. The patient is on Lipitor for dyslipidemia. He is on Lovenox for DVT prophylaxis. He is on Rocephin for antibiotics. He is on Synthroid for hypothyroidism. The patient 's magnesium is low at 1.5. The patient is currently on magnesium replacement. Gt Rice MD cc: [id number] TT: 09/23/2016 20:50:11 Confirmation # [id number] Dictation # [id number]
[2016-09-24] MEDS: Albuterol-Ipratrop 3 mg / 0.5 (3 ml) UD IH SCH ×4 (01:40→19:22)
[2016-09-24] MEDS: Pantoprazole 40 mg EC Tab PO SCH (06:33)
[2016-09-24 07:57] LABS: HEMATOCRIT 32.4 % (42.0-52.0); MEAN CELL VOLUME 84.4 fL (80.0-105.0); MEAN CORPUSCULAR HEMOGLOBIN 27.3 pg (25.0-35.0); MEAN CORPUSCULAR HGB CONC 32.4 g/dl (31.0-37.0); MEAN PLATELET VOLUME 11.1 fl (7.0-11.0); WHITE BLOOD COUNT 6.1 10^3/ul (4.5-11.0)
[2016-09-24] MEDS: Insulin Reg-MEDIUM-Coverage SC SCH ×4 (07:58→22:30)
[2016-09-24 08:22] LABS: ALB/GLOB RATIO 1.1 (1.1-1.8); BILIRUBIN,TOTAL 0.7 mg/dL (0.2-1.3); CALCIUM 7.9 mg/dL (8.4-10.5); MAGNESIUM 1.6 mg/dL (1.7-2.2); POTASSIUM 4.9 mmol/L (3.6-5.0); TOTAL PROTEIN 5.4 g/dL (5.8-8.3)
[2016-09-24] MEDS ORDERED: Enoxaparin 40 mg Syringe SC SCH (10:00)
[2016-09-24] MEDS: cefTRIAXone 1 gm 1 GM/100 ML BAG IVPB SCH (11:22)
[2016-09-24] MEDS: Levothyroxine 88 MCG TAB PO SCH (11:23)
[2016-09-24] MEDS: Magnesium Oxide 400 mg Tab UD PO SCH ×2 (11:23→17:49)
[2016-09-24 15:44] VITALS: O2SAT 95
--- NOTE | 2016-09-24 18:32 | PN ---
DATE: 09/24/2016 SUBJECTIVE: The patient is 86 years old, seen and examined, sitting in chair, family by the bedside, had a long discussion. The patient has been followed in the [facility] for many, many years. He does have a significant past medical history of hypertension, cardiomyopathy, status post defibr illator placement. He also has CA of the bladder; for that he was treated by an outside facility. Rajan leija also has a history of CA of the throat and had a total laryngectomy and a sound box placed. The ca me in because of bilateral leg swelling and he was found to have a large pleural effusion and underwe nt thoracentesis and had 2 liter of fluid drained. The patient seems to be comfortable. PHYSICAL EXAMINATION: VITAL SIGNS: He is afebrile, pulse 62, respirations 19, blood pressure 86/40. LUNGS: Bilateral fair air flow, decreased at bases. HEART: S1, S2 audible. ABDOMEN: Soft, nontender, no rebound, no guarding. NEUROLOGIC: He is awake and alert, able to communicate though his sound box. EXTREMITIES: Bilateral leg with improved edema. LABORATORY: WBC 6.1, hemoglobin 10.5, hematocrit 32.4, platelets 143. Chemistry: Sodium 138, potas sium 4.9, chloride 108, CO2 of 26, BUN 34, creatinine 1.5, blood sugar of 104. His magnesium is 1.6, alkaline phosphatase 854. Had echocardiogram done that shows [id number] systolic dysfunctio n, mitral regurgitation [id number]-[id number] and tricuspid regurg and mild pulmonary hypertension. ASSESSMENT AND PLAN: 1. Large left pleural effusion status post thoracentesis and 2 liters of fluid were drained. 2. Bilateral leg edema, improving. 3. Urinary retention, status post catheter placement. 4. Cardiomyopathy. 5. History of cancer of throat in the remote past. 6. Status post multiple angioplasties. 7. Atrial fibrillation. PLAN: The patient seems to be clinically stable. Will discontinue telemetry. Will start him on a m odified dose of Eliquis and discussed with family and they seem to understand the pros and cons. I mary lso mentioned that he needs some rehab and completion of course of antibiotic and start for TCU evalu ation. If he is accepted, we can transfer him to TCU. Also, I will cut down his dose of Coreg to on ce a day. His Lasix was held today since his blood pressure was on the low side. Will check his PSA level. Urology consult by Dr. Arroyo has been requested. I will hold his antihypertensive since his blood pressure is running low. Continue to monitor his blood sugar. Continue him on statins and Pro tonix and also check his thyroid profile in a.m. and follow up his electrolytes. Araceli Ghotra MD cc: [phone] TT: 09/24/2016 18:30:59 Confirmation # [id number] Dictation # [id number] dn
[2016-09-25] MEDS: Albuterol-Ipratrop 3 mg / 0.5 (3 ml) UD IH SCH ×3 (05:01→13:44)
[2016-09-25] MEDS: Pantoprazole 40 mg EC Tab PO SCH (06:19)
[2016-09-25 07:13] LABS: FREE T4 0.88 ng/dL (0.78-2.19)
[2016-09-25 07:27] LABS: PROSTATE SPECIFIC ANTIGEN 73.9 ng/mL (0.00-2.5); THYROID STIMULATING HORMONE 4.52 mIU/mL (0.46-4.68)
[2016-09-25] MEDS: Insulin Reg-MEDIUM-Coverage SC SCH ×2 (07:50→12:09)
[2016-09-25] MEDS: Magnesium Oxide 400 mg Tab UD PO SCH (09:49)
[2016-09-25] MEDS: Levothyroxine 88 MCG TAB PO SCH (09:49)
[2016-09-25] MEDS: cefTRIAXone 1 gm 1 GM/100 ML BAG IVPB SCH (09:51)
--- NOTE | 2016-09-25 11:28 | PN ---
DATE: 09/25/2016 DATE: 09/25/2016 SUBJECTIVE: The patient has no complaints of any chest pain, no shortness of breath. He says he fee ls well. He is waiting to go to the transitional care unit today. PHYSICAL EXAMINATION: VITAL SIGNS: Temperature is 97.7, pulse of 68. Blood pressure is 92/52. Respiration is 19. GENERAL: The patient is comfortable, in no acute distress. HEENT: Anicteric sclerae. Moist mucosa. NECK: No JVD or adenopathy. CARDIAC: S1/S2. No murmurs. No rubs. Regular. RESPIRATORY: Clear to auscultation bilaterally. No wheezes, rales, or rhonchi. Good air entry. ABDOMEN: Bowel sounds are positive, soft, nontender, and nondistended. EXTREMITIES: No edema. Has 1+ pulses. LABORATORY DATA: White count is 6.1, hemoglobin 10.5. Creatinine is 1.5. ASSESSMENT: 1. Left pleural effusion, status post tap. 2. 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 3. Coronary artery disease. 4. Dyslipidemia. 5. Hypertension. 6. Head and neck cancer with tracheostomy. 7. Coronary artery disease. 8. Diabetes type 2. 9. Lower extremity 1+ edema. PLAN: The patient is comfortable. He is waiting for transfer to transitional care unit. The patien t had 2 liters of drainage with a pleural tap done. The patient has lower extremity edema that is im proving. The patient is on nebulizer treatments. He is on Eliquis. He is going to continue with Glucotrol fo r his diabetes. He is on Flomax for his BPH. He is on Lipitor for dyslipidemia. The patient is on Synthroid for hypothyroidism. Gt Rice MD cc: [id number] TT: 09/25/2016 11:28:11 Confirmation # [id number] Dictation # [id number]
[2016-09-25 12:05] VITALS: BP 93/49; PULSE 70; RESP 18; TEMP 98.5
--- NOTE | 2016-10-27 08:22 | DS ---
Please refer to Dr. Rice's notes dictated on 09/27/2016. The patient was admitted with large left pleural effusion disorder, congestive heart failure, with hi story of coronary artery disease, hyperlipidemia, hypertension, with history of head and neck cancer and tracheostomy. He was in new onset of AFib, so since he was deconditioned he was transferred to [facility] on 09/25/2016 where he will receive physical therapy and will closely follow him up. Araceli Ghotra MD cc: [phone] TT: 10/26/2016 22:32:54 dn 10/27/2016 07:21:16
== END 2016-09-25 14:06 | DRG 292 ==
LOC: ED 17:32 → ERH 19:58 → 2RNO 21:59
PROVIDERS: ADMIT Internal Medicine; ATTEND Internal Medicine
PROC: 0W9B3ZZ Drainage of Left Pleural Cavity, Percutaneous Approach (ICD-10-PCS; principal; 2016-09-22 14:00)
DX: I11.0 Hypertensive heart disease with heart failure (principal); I50.23 Acute on chronic systolic (congestive) heart failure; J90 Pleural effusion, not elsewhere classified; Z93.0 Tracheostomy status; I42.9 Cardiomyopathy, unspecified; J44.9 Chronic obstructive pulmonary disease, unspecified; I48.2 Chronic atrial fibrillation; E11.9 Type 2 diabetes mellitus without complications; I25.10 Atherosclerotic heart disease of native coronary artery without angina pectoris; N40.1 Benign prostatic hyperplasia with lower urinary tract symptoms; R33.8 Other retention of urine; E03.9 Hypothyroidism, unspecified; E78.5 Hyperlipidemia, unspecified; M15.9 Polyosteoarthritis, unspecified; Z85.819 Personal history of malignant neoplasm of unspecified site of lip, oral cavity, and pharynx; Z95.810 Presence of automatic (implantable) cardiac defibrillator; Z79.84 Long term (current) use of oral hypoglycemic drugs; Z79.01 Long term (current) use of anticoagulants; Z92.3 Personal history of irradiation; Z85.51 Personal history of malignant neoplasm of bladder; Z95.1 Presence of aortocoronary bypass graft; Z95.5 Presence of coronary angioplasty implant and graft; Z87.891 Personal history of nicotine dependence

== ENCOUNTER 2016-09-25 14:14 | Inpatient (IN) | payer OTHER, MEDICARE ==
[2016-09-25 15:08] VITALS: BMI 27.1
[2016-09-25] MEDS ORDERED: INDOMETHACIN 50 MG PO PRN (15:23)
[2016-09-25] MEDS ORDERED: Insulin Regular 1 UNITS/0.01 ML ML SC SCH (16:30)
[2016-09-25] MEDS: Magnesium Oxide 400 mg Tab UD PO SCH (17:57)
[2016-09-25] MEDS: Albuterol-Ipratrop 3 mg / 0.5 (3 ml) UD IH SCH (20:23)
[2016-09-25] MEDS: Insulin Reg-MEDIUM-Coverage SC SCH (21:36)
[2016-09-26] MEDS: Albuterol-Ipratrop 3 mg / 0.5 (3 ml) UD IH SCH ×4 (03:45→21:08)
[2016-09-26] MEDS: cefTRIAXone 1 gm 1 GM/100 ML BAG IVPB SCH (05:24)
[2016-09-26] MEDS: Levothyroxine 88 MCG TAB PO SCH ×2 (05:25→10:48)
[2016-09-26] MEDS ORDERED: cefTRIAXone 1 gm 1 GM/100 ML BAG IVPB SCH (06:00)
[2016-09-26] MEDS: Pantoprazole 40 mg EC Tab PO SCH (06:10)
[2016-09-26] MEDS: Insulin Reg-MEDIUM-Coverage SC SCH ×4 (07:30→21:56)
--- NOTE | 2016-09-26 09:21 | CON ---
DATE: 09/26/2016 ADDENDUM I did a rectal exam on the patient. His left lobe is hard and consistent with prostate cancer. In a ddition, the son gave me more information that the patient had a prior history of bladder cancer chris nicholas with BCG. His last cystoscopy was 5-6 years ago at the [facility]. I told them my findings. I am going to do a prostate biopsy which I will do in the office on his discharge and also a cystoscopy. There is no reason to do it in the office now. It is very probable that the pain he is getting in his pel vis is related to metastatic prostate cancer. I am ordering a bone scan now and also a urine for cyt ology. Sunny Arroyo MD cc: [phone] TT: 09/26/2016 09:20:42 Confirmation # [id number] Dictation # [id number] dn
--- NOTE | 2016-09-26 09:25 | CON ---
DATE: 09/26/2016 This is an 86-year-old man who is on TCU for a history of deconditioning. He had been hospitalized i n the acute care facility for congestive heart failure. He has been seen at the [facility] regularly, is on tamsulosin, says that he would void with decreased stream prior to coming to the hospital and frequen cy. A Crowell catheter was placed in the ER and has remained in place. No flank pain. No prior urolo gic history. He has had a laryngectomy 5-7 years ago and used esophageal speech. PAST MEDICAL HISTORY: Coronary artery disease with angioplasty, noninsulin dependent diabetes and hy pertension. ALLERGIES: He has no allergies. At home, he is on Coumadin, Indocin for arthritis, Lasix, glipizide, losartan, Zocor, Aldactone, and Flomax. SOCIAL HISTORY: He no longer smokes, was a heavy smoker in the past. No alcohol use. FAMILY HISTORY: Noncontributory. REVIEW OF SYMPTOMS: Currently, no symptoms referable to the head, eyes, ears, nose or throat. No ca rdiac, respiratory, GI symptoms, psychiatric or dermatologic. He does have esophageal speech. PHYSICAL EXAMINATION: VITAL SIGNS: Shows him to be afebrile, pulse 68, respirations 18. HEENT: Normocephalic. Sclerae clear. Conjunctivae not injected. NECK: He had prior laryngectomy. ABDOMEN: No CVA pain. No hepatosplenomegaly, rebound or guarding. No suprapubic tenderness. GENITALIA: Unremarkable. RECTAL: I did not do a rectal at this time, but will do one when I see him tomorrow. SKIN: He has no purpura or edema. LABORATORY WORK: Shows a white count of 6000. His creatinine is 1.5. A PSA is 73.9. I will do a rectal to evaluate this. I am going to give the patient a voiding trial at this time. I f he can void, then we will leave the Crowell out and depending on the findings on rectal exam, he will need to have a prostate ultrasound and biopsy, but this can be done in the office on his discharge. We will follow with you. Sunny Arroyo MD cc: [phone] TT: 09/26/2016 09:24:28 Confirmation # [id number] Dictation # [id number] en
[2016-09-26] MEDS: Magnesium Oxide 400 mg Tab UD PO SCH ×2 (10:00→17:08)
--- NOTE | 2016-09-26 13:20 | HP ---
The patient is an 86-year-old, seen and examined. The patient came to Emergency Room on 09/21/2016 bi lateral leg edema. He was found to have large pleural effusion that he had thoracentesis done. Feel s a lot better. He had underlying pneumonia. For that, he is getting antibiotic. He was also found to be in urinary retention. For that, he has catheter placed, so transferred to TCU to complete his course of antibiotic and physical therapy. PAST MEDICAL HISTORY: Significant for: 1. CA throat. He had surgery done many, many years ago and had sound box placed. 2. Non-insulin dependent diabetes. 3. Hypertension. 4. History of coronary artery disease, status post angioplasty. 5. History of generalized osteoarthritis. 6. History of cancer of bladder. ALLERGIES: He is not allergic to any medication. MEDICATIONS AT HOME: He is on Flomax 0.4 daily, Aldactone 25 daily, aspirin 81 daily, simvastatin 80 mg daily, losartan 25 daily, levothyroxine 88 mcg daily, glipizide 5 mg twice a day, Lasix 20 mg Mon, Monday, Monday. He is on indomethacin 50 mg 3 times a day, Coumadin 6 mg daily. SOCIAL HISTORY: He used to be heavy smoker in the past, but quit many, many years ago. No history o f drug or alcohol use. PHYSICAL EXAMINATION: GENERAL: He is awake and alert, communicative. VITAL SIGNS: He is afebrile, pulse 60, respiration 18, blood pressure 102/68. LUNGS: Bilateral fair airflow, decreased at bases. HEART: S1, S2 audible. ABDOMEN: Soft, nontender, no rebound, no guarding. NEUROLOGIC: The patient is awake and alert, communicative, ambulatory. His echocardiogram showed left ventricular systolic function severely impaired. ASSESSMENT: 1. Large pleural effusion, status post thoracentesis. 2. Status post defibrillator placement. 3. Cardiomyopathy. 4. Left lower lobe pneumonia. 5. History of cancer of throat, status post laryngectomy. PLAN: Currently, patient is on spironolactone, aspirin, Coreg. Continue him on Eliquis and glipizid e. He is also on indomethacin and atorvastatin. We will continue on that. Continue him on Rocephin and levothyroxine and will reevaluate patient in a.m. Araceli Ghotra MD cc: [phone] TT: 09/26/2016 13:18:23 [facility] # [id number] en
--- NOTE | 2016-09-26 18:30 | CON ---
DATE: 09/26/2016 REASON FOR CONSULTATION AND FOLLOWUP: Continuity of the care in transitional unit care. History of coronary artery disease, CABG, history of PTCA, history of atrial fibrillation, history of cardiomyop athy, history of AFib. BRIEF CLINICAL HISTORY: An 86-year-old male with past medical history of coronary artery disease, st atus post history of CABG 20 years ago, history of PTCA 18 years ago, history of defibrillator 17 yea rs ago, history of throat cancer status post radiation and later on neck dissection, status post trac heostomy 7 years ago at [facility], admitted with swelling of the leg and large pleural eff usion status post 2 liter thoracentesis done. Now, the patient is transferred to TCU for continuity of care. The patient denies any chest pain, shortness of breath, any palpitation. PAST MEDICAL HISTORY: Significant for coronary artery disease as above, history of CABG 20 years ago , history of quadruple bypass possible [facility] or [place], history of AICD 1 7 years ago, history of head and neck dissection for throat cancer, history of tracheostomy 7 years a go, history of atrial fibrillation, was not on anticoagulation prior to this admission. Most recent cardiac workup as follows: The patient had echocardiography 09/23/2016 that shows normal size thickne ss, severely impaired LV function and regional wall motion abnormalities noted, mild to moderate mitr al regurgitation, mild tricuspid regurgitation, pulmonary hypertension, right ventricular systolic pr essure 39, calculated ejection fraction 36%. The patient is being followed at [facility], stres s test a couple of years ago and was told negative. The patient found to be in afib, was not on anti coagulation, only baby aspirin. Discussed with the daughter Sergio and the patient was restarted here on Eliquis by Dr. Ghotra. SOCIAL HISTORY: Ex-smoker, quit after throat cancer was diagnosed. Denies any history of alcohol ab use. CURRENT MEDICATIONS: The patient before came in was taking Flomax, Coreg, simvastatin, Lasix 80, Cor eg and baby aspirin. Now patient is started on Eliquis 2.5 b.i.d. REVIEW OF SYSTEMS: As per HPI. ALLERGIES: No known drug allergies. PHYSICAL EXAMINATION: VITAL SIGNS: Temperature afebrile, heart rate 60, blood pressure 102/68. HEENT: PERRLA. Extraocular muscles intact. NECK: Supple. No carotid bruits. No thyromegaly. CHEST: Clear to auscultation. HEART: S1, S2 regular. ABDOMEN: Soft. EXTREMITIES: Clubbing and cyanosis negative. LABORATORY DATA: Blood workup as follows: WBC 6.9, hemoglobin 10.____, hematocrit 32.4, platelet co unt 143. Chemistry shows sodium 130, potassium 4.0, chloride 108, carbon dioxide 26, anion gap of 9, BUN 34, creatinine 1.5. TSH 4.52. IMPRESSION: Chronic atrial fibrillation, cardiomyopathy, decompensated congestive heart failure, cor onary artery disease, coronary artery bypass graft, status post percutaneous transluminal coronary an gioplasty, history defibrillator, history of large volume thoracentesis, history of atrial fibrillati on, mitral regurgitation, tricuspid regurgitation, head and neck cancer status post tracheostomy, sta tus post radical resection of the neck and radiation, status post tracheostomy. Echo shows a calcula nicholas ejection fraction 35%, mild to moderate mitral regurgitation, mild tricuspid regurgitation, pulmo nary hypertension, right ventricular systolic pressure 39. RECOMMENDATION: Continue with gentle diuretics, aspirin, continue aspirin, continue Coreg, continue Eliquis. We will follow with you. Continue rehabilitation. For now, we will continue IV Lasix. Fo llow up the lab and once stable, will change to p.o. We will follow with you. Thank you, Dr. Ghotra, for providing the opportunity in taking care of the patient. Jake Lemus MD cc: [phone] TT: 09/26/2016 18:29:45 Confirmation # [id number] Dictation # [id number] fernanda
[2016-09-27] MEDS: Albuterol-Ipratrop 3 mg / 0.5 (3 ml) UD IH SCH ×4 (01:49→19:52)
[2016-09-27] MEDS: Pantoprazole 40 mg EC Tab PO SCH (05:59)
[2016-09-27] MEDS: cefTRIAXone 1 gm 1 GM/100 ML BAG IVPB SCH (05:59)
[2016-09-27] MEDS: Insulin Reg-MEDIUM-Coverage SC SCH ×4 (06:36→21:47)
[2016-09-27 07:52] LABS: ADD MANUAL DIFF? NO
[2016-09-27 07:57] LABS: BASO # 0.03 K/mm3 (0.0-2.0); BASO % 0.6 % (0.0-3.0); EOS # 0.2 (0.0-0.7); EOS % 3.1 % (1.5-5.0); GRAN # 3.79 (1.4-6.5); HEMATOCRIT 31.3 % (42.0-52.0); LYMPH # 0.7 (1.2-3.4); LYMPH % 13.7 % (22.0-35.0); MEAN CELL VOLUME 84.1 fL (80.0-105.0); MEAN CORPUSCULAR HEMOGLOBIN 26.9 pg (25.0-35.0); MEAN CORPUSCULAR HGB CONC 31.9 g/dl (31.0-37.0); MEAN PLATELET VOLUME 10.2 fl (7.0-11.0); MONO # 0.5 (0.1-0.6); MONO % 9.6 % (1.0-6.0); PLATELET COUNT 181 10^3/uL (120.0-450.0); RED CELL DISTRIBUTION WIDTH 16.6 % (11.5-14.5); WHITE BLOOD COUNT 5.2 10^3/ul (4.5-11.0)
[2016-09-27 08:08] LABS: ALB/GLOB RATIO 1.1 (1.1-1.8); BILIRUBIN,TOTAL 0.3 mg/dL (0.2-1.3); CALCIUM 7.8 mg/dL (8.4-10.5); PHOSPHOROUS 2.6 mg/dL (2.5-4.5); POTASSIUM 5.4 mmol/L (3.6-5.0); TOTAL PROTEIN 5.9 g/dL (5.8-8.3)
[2016-09-27] MEDS: Levothyroxine 88 MCG TAB PO SCH (10:54)
[2016-09-27] MEDS: Magnesium Oxide 400 mg Tab UD PO SCH ×2 (10:54→17:32)
--- NOTE | 2016-09-27 18:30 | PN ---
DATE: 09/27/2016 The patient is in room 318, bed 1. REASON FOR CONSULTATION AND FOLLOWUP: Coronary artery disease, CABG, history of PTCA, history of atr ial fibrillation, cardiomyopathy, history of AICD insertion. HISTORY OF PRESENT ILLNESS: An 86-year-old male who is known to have coronary artery disease status post CABG 20 years ago, history of PTCA 18 years ago, defibrillator insertion 17 years ago, throat ca ncer status post radiation - later on neck dissection, and a tracheostomy 7 years ago at [facility], was admitted with swelling of legs and large pleural effusion status post 2-liter thoracent esis done. The patient improved and transferred to transitional care unit for deconditioning and phy sical therapy. The patient is lying flat in bed without chest pain, shortness of breath, or palpitation. PHYSICAL EXAMINATION: VITAL SIGNS: Blood pressure 103/62, respirations 18, pulse 65, temperature 98. HEAD: Normocephalic. EYES: Pupils are normal. Conjunctivae are slightly pale. NECK: JVP low. Carotids equal. THORAX: AP diameter normal. LUNGS: No significant rales. CARDIOVASCULAR: S1, S2. ABDOMEN: Soft, nontender. No organomegaly. NECK: The patient had a tracheostomy. PERIPHERALS: No clubbing, no cyanosis. LABORATORY DATA: WBC 5.2, hemoglobin 10.0, hematocrit 31.3, platelets 181. Sodium 137, potassium 5. 4, BUN 41, creatinine 1.4. Sugar 106. AST and ALT normal. Total protein 5.9, albumin 3.1. The patient had echo on 09/23/2016 that showed severely impaired LV systolic function with ejection fr action of 36%. The patient, from cardiac point of view, follows with [facility]. Stress test a few yea rs ago was told to be negative. The patient was also found by them to be in AFib, but the patient wa s not put on anticoagulation, only baby aspirin, and now we have started the patient on Eliquis. DIAGNOSES: Chronic atrial fibrillation, cardiomyopathy, decompensated congestive heart failure, [place] nary artery disease, coronary artery bypass surgery, status post transluminal coronary angioplasty, a nd history of AICD insertion, pleural effusion status post thoracentesis, mitral regurgitation, tricu spid regurgitation, head and neck cancer status post tracheostomy, status post radical resection of t he neck, radiation therapy. On echo, ejection fraction 35%, right ventricular systolic pressure of 3 9%, mild to moderate mitral regurgitation, mild tricuspid regurgitation, deconditioning. PLAN: The patient is on spironolactone 25 mg daily, aspirin 81 mg daily, carvedilol 6.25 b.i.d., Duo Neb hand nebulizer therapy, Eliquis 2.5 b.i.d., Lipitor 40 mg daily, mag oxide 400 mg b.i.d., gabapen tin 300 mg p.o. t.i.d., Glucotrol 5 mg p.o. a.c.b.d., furosemide 40 mg IV daily. We will repeat pota ssium level now. If it is high, then we will think about giving Kayexalate. We will follow with you . The patient is on Lasix and spironolactone. Jake Aaron MD cc: [phone] TT: 09/27/2016 18:29:03 Confirmation # [id number] Dictation # [id number] jn
--- NOTE | 2016-09-27 21:59 | PN ---
DATE: 09/27/2016 The patient is an 86-year-old, seen and examined, sitting in chair, seems to be comfortable. No feve r, no chills, no nausea, vomiting, no diarrhea. Bilateral leg edema has significantly improved. No shortness of breath. PHYSICAL EXAMINATION: VITAL SIGNS: He is afebrile, pulse 65, respirations 14, blood pressure 103/62. . LUNGS: Bilateral fair airflow, no rhonchi or crackle. HEART: S1, S2 audible. ABDOMEN: Soft, nontender, no rebound, no guarding. NEUROLOGIC: The patient is awake and alert, ambulatory. EXTREMITIES: Bilateral legs, no edema. LABORATORY: WBC 5.2, hemoglobin 10, hematocrit 31, platelets 181. Chemistry: Sodium 137, potassium 5.4, chloride 106, CO2 25, BUN 41, creatinine 1.4, blood sugar 106, alkaline phosphatase 825. ASSESSMENT: 1. Bilateral pleural effusion, status post thoracentesis. 2. Bilateral leg edema, improved. 3. Ischemic cardiomyopathy, status post defibrillator placement. 4. Underlying pneumonia. 5. Atrial fibrillation. 6. Hyperkalemia. PLAN: I will hold Aldactone. Will continue antibiotics. The patient has acute urinary retention. Crowell was placed initially and then later on was evaluated by Dr. Arroyo since his PSA was 73.9. Nucle ar bone scan was done. 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 We will continue patient on Rocephin. Continue his usual medication. Will discus s with Dr. Arroyo since probably patient has cancer of prostate with mets to the bone. The patient is planned to be discharged on . Araceli Ghotra MD cc: [phone] TT: 09/27/2016 21:59:00 Confirmation # [id number] Dictation # [id number] zahira
[2016-09-28] MEDS: Albuterol-Ipratrop 3 mg / 0.5 (3 ml) UD IH SCH ×4 (01:09→21:08)
[2016-09-28] MEDS: cefTRIAXone 1 gm 1 GM/100 ML BAG IVPB SCH (05:23)
[2016-09-28] MEDS: Pantoprazole 40 mg EC Tab PO SCH ×2 (05:23→07:46)
[2016-09-28] MEDS ORDERED: Levothyroxine 88 MCG TAB PO SCH (06:00)
[2016-09-28] MEDS: Insulin Reg-MEDIUM-Coverage SC SCH ×4 (06:38→21:58)
[2016-09-28] MEDS: Magnesium Oxide 400 mg Tab UD PO SCH ×2 (10:06→18:15)
[2016-09-28] MEDS ORDERED: metOLazone 5 MG TAB PO STA (12:04)
--- NOTE | 2016-09-28 12:46 | PN ---
DATE: 09/28/2016 The patient is in room 318, bed 1. REASON FOR CONSULTATION AND FOLLOWUP: Coronary artery disease, CABG, history of PTCA, history of atr ial fibrillation, cardiomyopathy, status post AICD insertion. HISTORY OF PRESENT ILLNESS: The patient is an 86-year-old male who was admitted to the hospital with edema of the legs and large pleural effusion, status post 2 L thoracentesis done. The patient was o n medical floor, improved, now in transitional care unit for deconditioning and physical therapy. Th e patient denies any chest pain, shortness of breath, or palpitation. PHYSICAL EXAMINATION: VITAL SIGNS: Blood pressure is 110/60, respirations 18, pulse 63, temperature 98.0. HEAD: Normocephalic. EYES: Pupils normal. Conjunctivae slightly pale. NECK: JVP low. Carotid equal. THORAX: AP diameter normal. LUNGS: No rales. CARDIOVASCULAR: S1, S2. ABDOMEN: Soft, no tenderness, no organomegaly. NECK: The patient has a tracheostomy. PERIPHERIES: no clubbing, no cyanosis. LABORATORY DATA: WBC 5.2, hemoglobin 10.0, hematocrit 31.3, platelets 181. Sodium 137, potassium 5. 4, BUN 41, creatinine 1.4. Phosphorous, magnesium, glucose normal. Calcium 7.8. AST, ALT, total pr otein and albumin normal. DIAGNOSES: Chronic atrial fibrillation, cardiomyopathy, decompensated congestive heart failure due t o acute on chronic left ventricular systolic failure, coronary artery disease, coronary artery bypass surgery 20 years ago, history of percutaneous transluminal coronary angioplasty 18 years ago and def ibrillator insertion 17 years ago. Throat cancer status post radiation therapy, later on neck dissec tion and tracheostomy 7 years ago at [facility], status post automatic implantable cardiove rter-defibrillator insertion, mitral regurgitation, tricuspid regurgitation, status post radical rese ction of neck, radiation therapy. Echo ejection fraction 35%, right ventricle systolic pressure 39 m mHg, mild to moderate mitral regurgitation, mild tricuspid regurgitation, deconditioning. PLAN: The patient still has swelling of legs. We will give him Zaroxolyn today. The patient has hy perkalemia, but spironolactone has been already stopped and we did increase diuresis. We will check the potassium and BUN tomorrow and if it still stays high, we consider giving Kayexalate. The patien t also on Eliquis 2.5 b.i.d., Lipitor 40 daily, mag oxide 400 b.i.d., gabapentin 300 mg p.o. t.i.d., Glucotrol 5 mg p.o. a.c. BD, furosemide 40 IV daily. Continue physical therapy. We will follow. Jake Aaron MD cc: [phone] TT: 09/28/2016 12:46:00 Confirmation # [id number] Dictation # [id number] tn
--- NOTE | 2016-09-28 18:58 | PN ---
DATE: 09/28/2016 The patient is an 86-year-old, seen and examined, sitting in chair, seems to be comfortable. Leg swelling has almost gone, cough and congestion has improved a lot. Still gets short of breath of f and on. PHYSICAL EXAMINATION: VITAL SIGNS: He is afebrile, pulse ____, respiration 18, blood pressure 94/61. LUNGS: Bilateral fair airflow, no rhonchi or crackle. HEART: S1, S2 audible. ABDOMEN: Soft, nontender, no rebound, no guarding. NEUROLOGIC: The patient is awake and alert and communicates with sound box. He had laryngectomy don e because of throat cancer. ASSESSMENT AND PLAN: 1. Bilateral leg edema. 2. Cardiomyopathy status post defibrillator placement. 3. Underlying pneumonia. 4. Hypertension. 5. Carcinoma prostate with mets to the bone. PLAN: I discussed for ____ nuclear scan with the patient and he states he will follow with Dr. Arroyo. If patient remains stable, he will be discharged home in a.m. Araceli Ghotra MD cc: [phone] TT: 09/28/2016 18:56:50 Confirmation # [id number] Dictation # [id number] fernanda
[2016-09-29] MEDS: Albuterol-Ipratrop 3 mg / 0.5 (3 ml) UD IH SCH ×4 (03:00→20:41)
[2016-09-29] MEDS: Pantoprazole 40 mg EC Tab PO SCH (05:29)
[2016-09-29] MEDS: cefTRIAXone 1 gm 1 GM/100 ML BAG IVPB SCH (05:31)
[2016-09-29] MEDS: Insulin Reg-MEDIUM-Coverage SC SCH ×4 (06:40→21:31)
[2016-09-29 07:43] LABS: CALCIUM 7.6 mg/dL (8.4-10.5); MAGNESIUM 2.2 mg/dL (1.7-2.2); PHOSPHOROUS 2.8 mg/dL (2.5-4.5)
[2016-09-29] MEDS: Magnesium Oxide 400 mg Tab UD PO SCH ×2 (09:10→17:12)
[2016-09-29] MEDS ORDERED: Sod Polystyrene Sulf 15 gm/60 ml Oral Susp PO ONE (10:40)
[2016-09-29] MEDS ORDERED: metOLazone 5 MG TAB PO STA (10:41)
[2016-09-29] MEDS ORDERED: Insulin Regular 1 UNITS/0.01 ML ML SC STA ×2 (10:50→15:04)
[2016-09-29] MEDS ORDERED: Dextrose 50% SYRINGE Inj (50 ml) IVP ONE (10:56)
--- NOTE | 2016-09-29 11:42 | PN ---
DATE: 09/29/2016 The patient is in room 318, bed 1. REASON FOR CONSULTATION AND FOLLOWUP: Coronary artery disease, CABG, history of PTCA, history of atr ial fibrillation, cardiomyopathy, status post AICD insertion. HISTORY OF PRESENT ILLNESS: The patient is an 86-year-old male admitted to the hospital with edema o f the legs and large pleural effusions, status post 2-liter thoracentesis done. The patient improved , now in transitional care unit for getting physical therapy. Denies chest pain, shortness of breath , palpitation. He still has some edema on the legs. Yesterday, I gave him Zaroxolyn 5 mg p.o. along with Lasix. PHYSICAL EXAMINATION: VITAL SIGNS: Blood pressure is 91/50, respirations 18, pulse 63, temperature 98.0. HEAD: Normocephalic. EYES: Pupils normal. Conjunctivae slightly pale. NECK: JVP low. Carotid equal. The patient has a tracheostomy. THORAX: AP diameter normal. LUNGS: No significant rales. CARDIOVASCULAR: S1, S2. ABDOMEN: Soft, no tenderness, no organomegaly. EXTREMITIES: No clubbing, no cyanosis. LABORATORY DATA: WBC 5.2, hemoglobin 10.0, hematocrit 31.3, platelets 181. Sodium 135, potassium 6. 0, BUN 50, creatinine 1.8. DIAGNOSES: Cardiomyopathy, chronic atrial fibrillation, decompensated congestive heart failure, acut e on chronic, left ventricular systolic failure, coronary artery disease, status post bypass surgery 20 years ago, history of angioplasty 18 years ago, defibrillator 17 years ago, throat cancer status p ost radiation therapy and exploration of the neck with tracheostomy 7 years ago, mitral regurgitation , tricuspid regurgitation, status post radiation of the neck. Echo showed ejection fraction of 35%, right ventricular systolic pressure 39 mmHg, mild to moderate mitral regurgitation, mild tricuspid re gurgitation. Deconditioning, renal dysfunction, hyperkalemia, anemia. PLAN: We will give Kayexalate 30 mg today for hyperkalemia and give another dose of Zaroxolyn 5 mg t o help increase the diuresis due to swelling on the legs and will follow with you. Jake Aaron MD cc: [phone] TT: 09/29/2016 11:42:01 Confirmation # [id number] Dictation # [id number] en
[2016-09-29 14:52] LABS: ALB/GLOB RATIO 1.1 (1.1-1.8); BILIRUBIN,TOTAL 0.3 mg/dL (0.2-1.3); CALCIUM 8.2 mg/dL (8.4-10.5)
[2016-09-29] MEDS ORDERED: Sod Polystyrene Sulf 15 gm/60 ml Oral Susp PO STA (15:03)
[2016-09-29] MEDS ORDERED: Dextrose 50% SYRINGE Inj (50 ml) IVP STA (15:05)
[2016-09-29] MEDS ORDERED: Albuterol-Ipratrop 3 mg / 0.5 (3 ml) UD IH SCH (15:15)
[2016-09-30] MEDS: Albuterol-Ipratrop 3 mg / 0.5 (3 ml) UD IH SCH ×2 (01:45→08:16)
[2016-09-30] MEDS: cefTRIAXone 1 gm 1 GM/100 ML BAG IVPB SCH (05:51)
[2016-09-30] MEDS: Pantoprazole 40 mg EC Tab PO SCH (05:52)
[2016-09-30 06:23] LABS: CALCIUM 7.4 mg/dL (8.4-10.5); MAGNESIUM 2.3 mg/dL (1.7-2.2); PHOSPHOROUS 2.9 mg/dL (2.5-4.5); POTASSIUM 4.7 mmol/L (3.6-5.0)
[2016-09-30] MEDS: Insulin Reg-MEDIUM-Coverage SC SCH ×2 (06:49→12:31)
--- NOTE | 2016-09-30 09:14 | DS ---
The patient is an 86-year-old, seen and examined, anxious to go home. No nausea, vomiting, no diarrh ea. PHYSICAL EXAMINATION: VITAL SIGNS: He is afebrile. Pulse 66, respirations 14, blood pressure 91/55. LUNGS: Bilateral fair air flow in the upper lung region. He has decreased breath sounds at right ba se. HEART: S1, S2 audible. ABDOMEN: Soft, nontender, no rebound, no guarding. NEUROLOGIC: He is awake and alert, communicative. LABORATORY EXAM: Sodium originally was 135, potassium 6.0, chloride 105, CO2 25, BUN 50, creatinine 1.8, blood sugar of 125. Because of his hyperkalemia, he was given dose of calcium gluconate. He wa s given D50 with 5 units of insulin. He is also given 30 gram of Kayexalate and repeat Chem-7 shows still potassium was 6, so we will not repeat Kayexalate and give him D50 with 5 units of insulin marcos g with nebulizer treatment, so we will repeat in 3-4 hours. Again, if his potassium is below 5.3, he will be discharged tonight. Araceli Ghotra MD cc: 413 TT: 09/30/2016 09:13:59 va
--- NOTE | 2016-09-30 09:17 | DS ---
ADDENDUM to today's note dictated earlier. ASSESSMENT AND PLAN: 1. Bilateral pleural effusion, status post thoracentesis and 2 liters of fluid was removed. 2. Probably carcinoma of prostate with metastasis to the bone. 3. Chronic atrial fibrillation. 4. Left ventricular systolic dysfunction. 5. Status post pacemaker placement and then status post defibrillator placement. 6. Status post angioplasty 18 years ago. 7. Status post gastric bypass 20 years ago. 8. History of carcinoma of throat, status post laryngectomy. 9. Mitral regurgitation. 10. Left ventricular systolic dysfunction with ejection fraction of 35%. Once his potassium is down he will be discharged tonight. Araceli Ghotra MD cc: [phone] TT: 09/30/2016 09:15:52 mn
[2016-09-30] MEDS: Magnesium Oxide 400 mg Tab UD PO SCH (09:45)
[2016-09-30 10:58] VITALS: BP 157/90; PULSE 96; RESP 18; TEMP 97.6; O2SAT 96
--- NOTE | 2016-09-30 11:27 | PN ---
DATE: 09/30/2016 The patient is in room 318, bed 1. REASON FOR CONSULTATION AND FOLLOWUP: Coronary artery disease, CABG, history of PTCA, history of atr ial fibrillation, cardiomyopathy, status post AICD insertion. HISTORY OF PRESENT ILLNESS: The patient is an 86-year-old male admitted to the hospital with edema o f the legs and large pleural effusion, status post 2 L thoracentesis done. The patient improved. No w, patient is in transitional care unit, getting physical therapy. Denies chest pain, shortness of b reath or palpitations. He still has some swelling on the legs. He has been on diuretics and last 2 days I gave him also Zaroxolyn 5 mg. The patient is sitting comfortably in chair without any cardiac symptoms. PHYSICAL EXAMINATION: VITAL SIGNS: Blood pressure is 84/56, earlier was 91/55, respirations 14, pulse 62, temperature 97.2 . HEAD: Normocephalic. EYES: Pupils normal. Conjunctivae slightly pale. NECK: JVP low. Carotid equal. The patient also has tracheostomy. THORAX: AP diameter normal. LUNGS: No significant rales. CARDIOVASCULAR: S1 and S2. ABDOMEN: Soft, no tenderness, no organomegaly. EXTREMITIES: No clubbing, no cyanosis. The patient still has edema of both legs. LABORATORIES: Done on 09/30 and they show sodium 138, potassium 4.7. Yesterday, potassium was 6.0. BUN 56, creatinine 1.8, sugar 85, calcium 7.4, phosphorous 2.9, magnesium 2.3. DIAGNOSES: Cardiomyopathy, chronic atrial fibrillation, decompensated congestive heart failure, acut e on chronic failure, coronary artery disease, status post bypass surgery 20 years ago, history of angioplasty 8 years ago, defibrillation insertion 17 years ago, throat cancer status post radiati on therapy and exploratory surgery of the neck with a tracheostomy 7 years ago, mitral regurgitation, tricuspid regurgitation, status post radiation of the neck. Echo showed ejection fraction 35%, righ t ventricle systolic pressure 39 mmHg, mild to moderate mitral regurgitation, mild tricuspid regurgit ation. Deconditioning, renal dysfunction, hyperkalemia, anemia. PLAN: The patient received Kayexalate yesterday and potassium has become normal. Will continue aspi rin 81 mg daily, carvedilol 6.25 b.i.d., Eliquis 2.5 q. 12 hours, Flomax 0.4 daily, glipizide 5 mg p. o. daily, Lasix 40 IV daily, Lipitor 40 daily, mag oxide 400 mg b.i.d., Neurontin 300 mg p.o. t.i.d., Rocephin 1 gram IV daily. Magnesium is 2.3, so we can stop the mag oxide. We will continue to foll ow closely with you. Jake Aaron MD cc: [id number] TT: 09/30/2016 11:26:53 Confirmation # [id number] Dictation # [id number]
--- NOTE | 2016-09-30 22:50 | DS ---
HISTORY OF PRESENT ILLNESS: The patient is 86 years old with multiple medical issues, initially admi tted with bilateral leg edema. He was found to be in atrial fibrillation. His CT scan of the chest showed large left pleural effusion and underwent thoracentesis and 2 liters of fluid was drained. Th en, he started to improve. He has been on IV diuretic, but patient found to be running on low blood pressure. The patient also had an episode of retention, so, he has catheter placed. Dr. Arroyo was co nsulted and PSA was ordered and was found to be 73. After that, he had a nuclear bone scan done that is positive for possible mets in thoracolumbar spine, pelvis and proximal femur. The patient was ad mitted in TCU to complete course of antibiotic and close observation. He was scheduled to be dischar [facility] yesterday, but, because of hyperkalemia, his discharge was on hold and he is being [facility]. PHYSICAL EXAMINATION: GENERAL: He is awake and alert, communicative. VITAL SIGNS: He is afebrile, pulse 96, respirations 18, blood pressure 157/90. LUNGS: Bilateral good airflow, no rhonchi or crackle. HEART: S1, S2 audible. No murmur. ABDOMEN: Soft, nontender, no rebound, no guarding. NEUROLOGIC: He is awake and alert, communicative. He communicates with a sound box that he has afte r laryngectomy. LABORATORY EXAM: Sodium 138, potassium 4.7, chloride 103, CO2 26, BUN 56, creatinine 1.8, blood suga r of 85. ASSESSMENT: 1. Bilateral pleural effusion. 2. History of cancer of throat, status post laryngectomy. 3. History of cancer of the bladder. 4. 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 5. Hypertension. 6. Chronic kidney disease. 7. Pleural effusion, status post thoracentesis. 8. Cardiomyopathy. 9. Chronic atrial fibrillation. 10. Congestive heart failure, acute on chronic, systolic. 11. Status post angioplasty. 12. Status post defibrillator placement 17 years ago. PLAN: The patient is being discharged home today. He is given prescription of Eliquis 2.5 twice a d ay. He will continue on Lasix 20 mg Monday, Monday, Monday. He will continue on Coreg 6.25 daily . His losartan and Aldactone have been discontinued. Will continue on Glucotrol, levothyroxine, sim vastatin and Flomax and he will follow. He is going to [place] to be with his daughter and he wi ll follow up there. He is advised to follow up chemistry and will possibly need a prostate biopsy to confirm if this is cancer of prostate and might need intervention in the form of local radiation. Araceli Ghotra MD cc: [phone] TT: 09/30/2016 22:48:48 mn
== END 2016-09-30 14:37 | disposition home or self-care (01) | DRG 291 ==
LOC: TRCU 14:14
PROVIDERS: ADMIT Internal Medicine; ATTEND Internal Medicine
PROC: F08Z4ZZ Home Management Treatment (ICD-10-PCS; 2016-09-26)
PROC: F07Z9ZZ Gait Training/Functional Ambulation Treatment (ICD-10-PCS; principal; 2016-09-27)
PROC: F07Z8FZ Transfer Training Treatment using Assistive, Adaptive, Supportive or Protective Equipment (ICD-10-PCS; 2016-09-27)
PROC: F07L6YZ Therapeutic Exercise Treatment of Musculoskeletal System - Lower Back / Lower Extremity using Other Equipment (ICD-10-PCS; 2016-09-27)
DX: I13.0 Hypertensive heart and chronic kidney disease with heart failure and stage 1 through stage 4 chronic kidney disease, or unspecified chronic kidney disease (principal); I50.23 Acute on chronic systolic (congestive) heart failure; J18.9 Pneumonia, unspecified organism; C79.51 Secondary malignant neoplasm of bone; Z93.0 Tracheostomy status; E11.22 Type 2 diabetes mellitus with diabetic chronic kidney disease; C61 Malignant neoplasm of prostate; I27.2 Other secondary pulmonary hypertension; D64.9 Anemia, unspecified; E87.5 Hyperkalemia; I48.2 Chronic atrial fibrillation; I08.1 Rheumatic disorders of both mitral and tricuspid valves; I25.5 Ischemic cardiomyopathy; M15.9 Polyosteoarthritis, unspecified; N18.9 Chronic kidney disease, unspecified; I25.10 Atherosclerotic heart disease of native coronary artery without angina pectoris; R33.9 Retention of urine, unspecified; Z98.61 Coronary angioplasty status; Z85.51 Personal history of malignant neoplasm of bladder; Z85.819 Personal history of malignant neoplasm of unspecified site of lip, oral cavity, and pharynx; Z79.84 Long term (current) use of oral hypoglycemic drugs; Z87.891 Personal history of nicotine dependence; Z90.02 Acquired absence of larynx; Z95.1 Presence of aortocoronary bypass graft; Z95.810 Presence of automatic (implantable) cardiac defibrillator; Z98.84 Bariatric surgery status